=== PATIENT | female | born 1960 | race Caucasian/White ===

== ENCOUNTER 2022-05-10 09:21 | Inpatient (IN) | payer OTHER ==
[~2022-05-10] VITALS: Ht 152.4 cm; Wt 78.2 kg
[2022-05-10 09:41] LABS: BASOPHILS ABSOLUTE AUTO 0.07 K/mm3 (0.00-0.23); BASOPHILS PERCENT AUTO 1 % (0-2); EOSINOPHILS ABSOLUTE AUTO 0.41 K/mm3 (0.00-0.68); EOSINOPHILS PERCENT AUTO 3 % (0-6); Hematocrit 38.2 % (33.0-51.0); IMMATURE GRAN ABSOLUTE AUTO 0.06 K/mm3 (0.00-0.10); IMMATURE GRAN PERCENT AUTO 0 % (0-1); LYMPHOCYTES ABSOLUTE AUTO 1.78 K/mm3 (0.84-5.20); LYMPHOCYTES PERCENT AUTO 12 % (21-46); MONOCYTES ABSOLUTE AUTO 0.74 K/mm3 (0.16-1.47); MONOCYTES PERCENT AUTO 5 % (4-13); Mean Corpuscular HGB 29.4 pg (26.0-34.0); Mean Corpuscular HGB Conc 31.4 g/dL (31.5-36.5); Mean Corpuscular Volume 94 fL (80-100); Mean Platelet Volume 9.4 fL (9.1-12.4); NEUTROPHILS ABSOLUTE AUTO 11.66 K/mm3 (1.96-9.15); NEUTROPHILS PERCENT AUTO 79 % (41-73); Platelet Count 258 K/mm3 (150-400); RDW Coefficient Variation 13.3 % (11.7-14.2); RDW Standard Deviation 45.8 fL (35.1-46.3); Red Blood Cell Count 4.08 M/mm3 (3.80-5.20); White Blood Cell Count 14.72 K/mm3 (4.00-11.30)
[2022-05-10 09:54] LABS: Albumin/Globulin Ratio 0.8 (0.8-1.8); Bilirubin, Total 0.5 mg/dL (0.1-1.0); Bun/Creatinine Ratio 18.3 (12.0-20.0); Calcium, Blood 8.4 mg/dL (8.5-10.1); Creatinine, Blood 0.6 mg/dL (0.40-1.00); Globulin, Blood 3.6 g/dL (2.2-4.0); Potassium, Blood 3.7 mmol/L (3.5-5.5); Total Protein, Blood 6.6 g/dL (6.4-8.2)
[2022-05-10 12:15] LABS: Source, Urine Clean Catch
[2022-05-10 12:28] LABS: Appearance, Urine Clear (Clear); Bilirubin, Urine Neg (Neg); Blood, Urine Neg (Neg); Color, Urine Yellow (P-Yellow); Glucose Qualitative, Urine Neg (Neg); Ketones, Urine Neg (Neg); Leukocyte Esterase, Urine Neg (Neg); Nitrite, Urine Neg (Neg); Protein, Urine Neg (Neg); Urobilinogen, Urine NORM (Normal)
[2022-05-10] MEDS ORDERED: LAMO100 PO (16:04)
[2022-05-10] MEDS ORDERED: AMLO10 PO (16:05)
[2022-05-10] MEDS ORDERED: LOSA50 PO (16:05)
[2022-05-10] MEDS ORDERED: DOXEPIN HCL100 M1 PO (16:06)
[2022-05-10] MEDS ORDERED: ATOR80 PO (16:06)
[2022-05-10] MEDS ORDERED: OXYB5 PO (16:07)
--- NOTE | 2022-05-10 16:58 | NUR ---
PATIENT ADMITTED FOR LUNG ABSCESS Patient AOx4, independent in the room. Very painful with movement, reports pain in right middle back. Lungs sounds clear/diminished. PRN Oxycodone & tylenol given for pain, PRNs effective. Temp 101, tylenol given, oral temp is now 98. Patient tolerating clear liquid diet. vitals stable.
--- NOTE | 2022-05-10 18:32 | NUR ---
Patient having unbearable pain, she is crying, restless, face is flushed, she cannot get comfortable, gave another 5mg of Oxycodone, uneffective for pain. MD ordered IV Fentynal Q2H for pain.
--- NOTE | 2022-05-11 04:29 | NUR ---
ON 05/10/22 @1935, DR NORMA KINSEY NOTIFIED OF PATIENT'S SEVERE PAIN. DR GREEN ORDERED, " GIVE BACLOFEN 10 MG 3 TIMES A DAY AND DILAUDID 0.5 MG EVERY 2 HOURS FOR SERVERE PAIN." ORDERS ENTERED ORDERED.
--- NOTE | 2022-05-11 05:01 | NUR ---
A&OX4. V/S WNL. CLEAR LIQUID DIET. INDEPENDANT IN ROOM. C/O R)SIDED CHEST/LUNG PAIN SECONDARY TO ABSCESS. PRN JUNE PO GIVEN X2; BACOFLEN GIVEN X2; DILAUDID GIVEN X4; FENTANYL GIVEN X2 FOR SEVERE PAIN PER EMAR. PT DENIED SOB. IV TO L) WRIST. WILL CONTINUE TO MONITOR.
[2022-05-11 05:59] LABS: Hematocrit 39.3 % (33.0-51.0); Hemoglobin 12.9 g/dL (11.5-16.0); Mean Corpuscular HGB 29.3 pg (26.0-34.0); Mean Corpuscular HGB Conc 32.8 g/dL (31.5-36.5); Mean Platelet Volume 8.9 fL (9.1-12.4); Platelet Count 256 K/mm3 (150-400); RDW Coefficient Variation 13.2 % (11.7-14.2); RDW Standard Deviation 43.3 fL (35.1-46.3); White Blood Cell Count 29.21 K/mm3 (4.00-11.30)
[2022-05-11 06:15] LABS: Mean Corpuscular Volume 89 fL (80-100)
[2022-05-11 06:27] LABS: Bun/Creatinine Ratio 16.7 (12.0-20.0); Calcium, Blood 8.9 mg/dL (8.5-10.1); Creatinine, Blood 0.54 mg/dL (0.40-1.00); Potassium, Blood 3.2 mmol/L (3.5-5.5)
[2022-05-11 14:53] LABS: International Normalized Ratio 1.3; Prothrombin Time Results 13.4 Sec (9.7-11.5)
--- NOTE | 2022-05-11 16:46 | NUR ---
SHIFT SUMMARY PT ADMITTED FOR LUNG ABSCESS AND PARAPNEUMONIC EFFUSION. PT VERY PAINFUL AND TREATED PER EMR. PULMONARY CONSULTED AND RECOMMENDED THORACENTESIS. ULTRA SOUND SHOWED TOO LITTLE FLUID FOR THE PT TO BE A CANDIDATE FOR THORACENTESIS. PT DESATS WHEN ASLEEP AND IS NOW ON O2 TO MAINTAIN SATS ABOVE 90. COMFORTABLY RESTING IN BED WITH HER CALL LIGHT IN REACH AT THIS TIME.
--- NOTE | 2022-05-12 04:25 | NUR ---
A&X4. V/S WNL. O2 @5LPM VIA N/C. SOB ON EXERTION. IV TO L) AC. VOIDS W/O DIFFICULTY. NO BM THIS SHIFT. INDEPENDANT/SBA. CLEAR LIQUID DIET. PRN JUNE X1 & BACOFLEN X1 GIVEN PER EMAR. ONE-TIME FENTANYL PATCH APPLIED TO R) UPPER ARM. WILL CONTINUE TO MONITOR.
[2022-05-12 06:02] LABS: BASOPHILS ABSOLUTE AUTO 0.07 K/mm3 (0.00-0.23); BASOPHILS PERCENT AUTO 0 % (0-2); EOSINOPHILS ABSOLUTE AUTO 0.13 K/mm3 (0.00-0.68); EOSINOPHILS PERCENT AUTO 0 % (0-6); Hemoglobin 12.4 g/dL (11.5-16.0); IMMATURE GRAN ABSOLUTE AUTO 0.69 K/mm3 (0.00-0.10); IMMATURE GRAN PERCENT AUTO 2 % (0-1); LYMPHOCYTES ABSOLUTE AUTO 1.93 K/mm3 (0.84-5.20); LYMPHOCYTES PERCENT AUTO 6 % (21-46); MONOCYTES ABSOLUTE AUTO 1.86 K/mm3 (0.16-1.47); MONOCYTES PERCENT AUTO 6 % (4-13); Mean Corpuscular HGB 29.4 pg (26.0-34.0); Mean Corpuscular HGB Conc 32.6 g/dL (31.5-36.5); Mean Corpuscular Volume 90 fL (80-100); Mean Platelet Volume 9.2 fL (9.1-12.4); NEUTROPHILS ABSOLUTE AUTO 29.23 K/mm3 (1.96-9.15); NEUTROPHILS PERCENT AUTO 86 % (41-73); Platelet Count 307 K/mm3 (150-400); RDW Coefficient Variation 13.5 % (11.7-14.2); RDW Standard Deviation 44.4 fL (35.1-46.3); Red Blood Cell Count 4.22 M/mm3 (3.80-5.20); White Blood Cell Count 33.91 K/mm3 (4.00-11.30)
[2022-05-12 06:11] LABS: Albumin, Blood 2.5 g/dL (3.4-5.0); Anion Gap 6 mmol/L (6-16); Blood Urea Nitrogen 15 mg/dL (8-24); Bun/Creatinine Ratio 21.5 (12.0-20.0); CO2, Blood 29 mmol/L (21-32); Calcium, Blood 9.1 mg/dL (8.5-10.1); Chloride, Blood 101 mmol/L (98-108); Glomerular Filtration Rate 98 (60-); Glucose, Blood 123 mg/dL (70-99); Phosphorus, Blood 4.8 mg/dL (2.5-4.9); Potassium, Blood 3.3 mmol/L (3.5-5.5); Sodium, Blood 136 mmol/L (136-145)
--- NOTE | 2022-05-12 06:35 | NUR ---
05/12/22 @0600, PT'S OT SAT < 88%. PT CHANGED FROM NC @ 5LPM TO OXYMIXER MASK @ 8LPM. AFTER 5 MINUTES, PT'S O2 SAT AT 87%. PT CHANGED TO NON-REBREATHER MASK AND BUMPPED TO 10LPM & O2 SAT @91%. DR HANDLEY NOTIFIED OF PT'S CHANGE AND RT: C.S. TOO. PROVIDER ORDERED A PORTABLE CHEST-RAY; HOWEVER A CHEST-XRAY HAD ALREADY ORDERED TO FOLLOW-UP. PT ASSSED BY RT, C.S. AND TAKEN FOR CHEST X-RAY VIA W/C. WILL CONTINUE TO MONITOR.
--- NOTE | 2022-05-12 11:03 | NUR ---
RN NOTE ON CONT PULSE OX LOW 90S, 93% NOW ON 13L OXIMISER. S/B RT THIS AM AND NEB GIVEN. PT USING FLUTTER VALVE, STRONG MOIST COUGH, SPUTUM CUP AT BEDSIDE FOR SPECIMEN. PLAN FOR US GUIDED THORACENTESIS TODAY. REG DIET ORDERED BY DR GREEN. NO NAUSEA, PT HUNGRY. OXY 10MG HELPFUL FOR R LUNG/CHEST PAIN. BED LOW, CALL LIGHT IN REACH.
--- NOTE | 2022-05-12 12:37 | NUR ---
RN NOTE PT S/B DR ZEB CHERY. PLAN FOR TRANSFER TO PCU DUE TO THICK FLUID R LUNG, NEED FOR HIGH O2 NEEDS (13L OXIMIZER), NEED FOR CHEST TUBE PLACEMENT/ MONITORING/ MEDICATION. PT O2 SAT REMAINS LOW 90S ON CONT PULSE OX.
--- NOTE | 2022-05-12 13:20 | NUR ---
RN NOTE REPORT TO MICKEY KING RN IN PCU.PREPARING TO TRANSFER PT NOW.
--- NOTE | 2022-05-12 13:25 | NUR ---
PT ARRIVED TO PCU RM07 VIA BED FROM MEDICAL FLOOR. ALL BELONGINGS SENT WITH PT. PT A&OX4, CONTINUOUS TELEMETRY AND SPO2 MONITORING PLACED. PT ORIENTED TO ROOM, CALL LIGHT AND UNIT ROUTINES. PT VERBALIZES UNDERSTANDING OF PLAN FOR CHEST TUBE. PT REPORTS IV TO R WRIST IS PAINFUL, ABX INFUSING AT THIS TIME STOPPED. PT AGREEABLE TO POWERGLIDE PLACEMENT. PT'S SO AT BEDSIDE WELL. SEE DOCUMENTED VS. WILL UPDATE DR CARRINGTON PER HIS REQUEST ONCE CHEST TUBE IS PLACED. PT DEMONSTRATES ABLILITY TO USE CALL LIGHT, WILL CONTINUE TO MONITOR.
[2022-05-12 16:48] LABS: Automated BF RBC Count 0.004 M/mm3 (0-0); Automated BF WBC Count 6.863 K/mm3 (0-999); Body Fluid WBC Count 6863 /mm3 (0-999); RBC Count, Body Fluid 4000 /mm3 (0-0)
[2022-05-12 16:58] LABS: Protein, Body Fluid 4.1 g/dL
[2022-05-12 17:20] LABS: Appearance, Body Fluid Cloudy (Clear); Color, Body Fluid Yellow (None-Yellow); Glucose, Body Fluid <1 mg/dL; Lactate Dehydrogenase, Body Fl 1626 U/L; Total Cell Count, Body Fluid 100
[2022-05-12 17:25] LABS: pH, Body Fluid 6.7
--- NOTE | 2022-05-12 18:38 | NUR ---
CHEST TUBE TO R LATERAL CHEST SUCESSFULLY PLACED IN CT THIS AFTERNOON WITH AN ACORDIAN DRAIN, PATENT, WITH SEROUS FLUID IN COLLECTION BAG. PT MEDICATED FOR PAIN PER MD ORDERS. DR CARRINGTON TO BEDSIDE POST CHEST TUBE PLACEMENT TO EVALUATE. POWERGLIDE PLACED TO CHIDI. PT APPEARS TO HAVE TOLERATED PROCEDURES WELL. NO FURTHER NEEDS OR EVENTS THIS SHIFT. CALL LIGHT IN REACH, WILL CONTINUE TO MONITOR AND GIVE REPORT TO ONCOMING SHIFT RN.
[2022-05-13 06:21] LABS: Hematocrit 33.4 % (33.0-51.0); Mean Corpuscular HGB 29.6 pg (26.0-34.0); Mean Corpuscular HGB Conc 32.9 g/dL (31.5-36.5); Mean Corpuscular Volume 90 fL (80-100); Mean Platelet Volume 10.2 fL (9.1-12.4); Platelet Count 357 K/mm3 (150-400); RDW Coefficient Variation 13.6 % (11.7-14.2); RDW Standard Deviation 45.3 fL (35.1-46.3); Red Blood Cell Count 3.71 M/mm3 (3.80-5.20); White Blood Cell Count 23.09 K/mm3 (4.00-11.30)
[2022-05-13 06:37] LABS: Bun/Creatinine Ratio 19.6 (12.0-20.0); Calcium, Blood 7.9 mg/dL (8.5-10.1); Creatinine, Blood 1.07 mg/dL (0.40-1.00); Potassium, Blood 4.7 mmol/L (3.5-5.5)
--- NOTE | 2022-05-13 06:54 | NUR ---
NOC SHIFT SUMMARY PT SLEPT WELL OVERNIGHT. ORIENTED X4. PAIN WITH COUGH AND MOVEMENT. SR ON TELEMETRY, VSS PER PT TREND. CT TO -20 WALL SUCTION CONTINOUSLY. 600ML YELLOW SEROUS OUTPUT. PRN PAIN MEDICATIONS GIVEN W/RELIEF. ADEQUATE UOP. WILL CONTINUE TO MONITOR AND PASS ON TO DAY RN
[2022-05-13] MEDS ORDERED: PROPRANOLOL HC160 MG PO (09:07)
--- NOTE | 2022-05-13 11:35 | NUR ---
DR CARRINGTON AT [facility] TO INJECT ALETPLASE AND DORNASE INTO PT'S CHEST TUBE. PT PREMEDICATED PER EMAR. PT TOLERATED INSTILATION WELL, NO C/O PAIN OR DISCOMFORT AT THIS TIME. CALL LIGHT IN REACH, WILL CONTINUE TO MONITOR.
--- NOTE | 2022-05-13 13:06 | NUR ---
PT C/O 10/10 STABBING BURNING PAIN TO R CHEST. MEDICATED PER EMAR. WILL CONTINUE TO MONITOR. 1330: PT CONTINUES TO REPORT 10/10 PAIN TO R CHEST. PT IS RESTLESS IN BED, CONSTANTLY MOVING, CRYING OUT. LARGE AMOUNT OF SEROSANGUNOUS OUTPUT IN CHEST TUBE DRAINAGE SYSTEM SINCE DR CARRINGTON UNCLAMPED THE CHEST TUBE. DR CARRINGTON NOTIFIED FOR INCREASED PAIN CONTROL, ONE TIME ORDER FOR 50MCG FENTANYL RECEIVED.
--- NOTE | 2022-05-13 14:30 | NUR ---
PT'S BPs ARE NOTED TO BE RUNNING 70-80s SYSTOLIC AT THIS TIME. PT CONTINUES TO REPORT 10/10 R SIDED CHEST PAIN. ADMINISTRATION OF IV PAIN MEDICINE APPEARS TO BE RELATED TO HYPOTENSION. PT'S PAIN APPEARS TO ONLY BE RELEIVED BREIFLY AFTER ADMINISTRATION OF PAIN MEDICATION, THEN SHE IS AGAIN REPORTING 10/10 PAIN. 02 NEEDS HAVE INCREASED FROM 6L OXYMIZER TO 10L. OVER 1L OF FLUID HAS DRAINED FROM THE CHEST TUBE SINCE DR CARRINGTON UNCLAMPED THE CHEST TUBE AT APROX 1230. DR CARRINGTON NOTIFIED OF PT'S CONDITION, ORDERS RECEIVED TO TRANSFER PT TO ICU FOR HIGHER LEVEL OF CARE.
--- NOTE | 2022-05-13 15:00 | NUR ---
PT TRANSFERRED TO ICU 11. ALL BELONGINGS SENT WITH PT. DR CARRINGTON AT BEDSIDE ON ARRIVAL TO ROOM. REPORT GIVEN TO CANDI RUIZ.
--- NOTE | 2022-05-13 15:21 | NUR ---
ASSUMED CARE BEDSIDE REPORT RECIEVED. PT TRANSFERED TO ICU ROOM 11 AT 1450 VIA BED. PT IS AWAKE, ALERT, AND ORIENTED. PT IS RESTLESS AND ROLLING SIDE TO SIDE IN BED CONTINUALLY. PT MOANS OUT AND COMPLAINS OF SEVERE PAIN TO RIGHT RIB'S AT CHEST TUBE SITE. PIGTAIL CHEST TUBE IN PLACE TO RIGHT LATERAL CHEST WITH PINK DRAINAGE NOTED. PT ON 10L O2 VIA OXYMIZER. PT WITH SBP 80-90'S. POWERGLIDE TO CHIDI IN PLACE WITH NS INFUSING TKO. DR CARRINGTON AT BEDSIDE TO EVALUATE PT. ORDERS RECIEVED. WILL CONTINUE TO MONITOR.
--- NOTE | 2022-05-13 17:47 | NUR ---
SHIFT SUMMARY PT WITH IMPROVED PAIN CONTROL THIS EVENING. PICC TO JIMENA PLACED, LEVOPHED INFUSING AT 6 MCG/MIN, NS TKO, AND FENTANYL BELT BACK OPERATOR 25 MCG/HR WITH BELT BACK OPERATOR DOSING. PT IS DROWSEY, BUT AWAKENS TO VERBAL STIMULI. VITAL SIGNS STABLE. PT ON 10L O2 VIA OXYMIZER. CHEST TUBE REMAINS C/D/I WITH PINK/CLEAR OUTPUT NOTED. PT RESTING IN BED CALMLY AT THIS TIME. WILL CONTINUE TO MONITOR AND REPORT OFF TO ONCOMING RN.
[2022-05-14 00:04] LABS: Vancomycin, Trough 39.1 ug/mL (5.0-10.0)
[2022-05-14 03:49] LABS: BASOPHILS ABSOLUTE AUTO 0.04 K/mm3 (0.00-0.23); BASOPHILS PERCENT AUTO 0 % (0-2); EOSINOPHILS ABSOLUTE AUTO 0.52 K/mm3 (0.00-0.68); EOSINOPHILS PERCENT AUTO 3 % (0-6); Hematocrit 36.7 % (33.0-51.0); Hemoglobin 12.1 g/dL (11.5-16.0); IMMATURE GRAN ABSOLUTE AUTO 0.11 K/mm3 (0.00-0.10); IMMATURE GRAN PERCENT AUTO 1 % (0-1); LYMPHOCYTES PERCENT AUTO 9 % (21-46); MONOCYTES ABSOLUTE AUTO 1.64 K/mm3 (0.16-1.47); MONOCYTES PERCENT AUTO 8 % (4-13); Mean Corpuscular HGB 29.3 pg (26.0-34.0); Mean Corpuscular Volume 89 fL (80-100); Mean Platelet Volume 8.8 fL (9.1-12.4); NEUTROPHILS ABSOLUTE AUTO 16.06 K/mm3 (1.96-9.15); NEUTROPHILS PERCENT AUTO 80 % (41-73); Platelet Count 369 K/mm3 (150-400); RDW Coefficient Variation 13.6 % (11.7-14.2); RDW Standard Deviation 44.7 fL (35.1-46.3); Red Blood Cell Count 4.13 M/mm3 (3.80-5.20); White Blood Cell Count 20.07 K/mm3 (4.00-11.30)
[2022-05-14 04:09] LABS: Bun/Creatinine Ratio 15.7 (12.0-20.0); Calcium, Blood 8.8 mg/dL (8.5-10.1); Creatinine, Blood 2.35 mg/dL (0.40-1.00); Potassium, Blood 3.6 mmol/L (3.5-5.5)
--- NOTE | 2022-05-14 06:16 | NUR ---
SHIFT SUMMARY: PT IS DROWSY BUT ORIENTED X4 WITH LEVOPHED AND FENTANLY HISTOLOGIC AIDE INFUSING. BASAL RATE OF HISTOLOGIC AIDE DECREASED TO 12.5/MCG/HR. LEVOPHED WAS TITRATED DOWN INITIALLY BUT PT DID NOT TOLLERATE WELL AND RATE WAS RETURNED TO 6 MCG/MIN.PT IS ABLE TO MOVE IN BED WITH SOME ASSITANCE, AND USE THE BEDPAN AND HAS GOOD URINE OUT PUT. THE CHEST TUBE HAD 150 ML OF SEROSANGUINOUS FLUID DRAINED WITHOUT SQ CREPITUS OR AIR LEAK AND PT STATES THAT OVER ALL THE PAIN IS DECREASED. PT'S SPO2 STABLE ON THE MODERATE FLOW NC AT 10 LPM.
--- NOTE | 2022-05-14 10:31 | NUR ---
CATHFLO CATHFLO ADMINISTERED VIA RIGHT POSTERIOR CHEST TUBE BY DR CARRINGTON AT THIS TIME. CHEST TUBE TO REMAIN CLAMPED FOR 30 MINS, THEN TURNED BACK TO SUCTION PER DR CARRINGTON.
--- NOTE | 2022-05-14 12:39 | NUR ---
PAIN PT CONTINUES TO YELL OUT AND IS RESTLESS IN BED. PT COMPLAINS OF 10/10 PAIN DESPITE FENTANYL ADVERTISING DISPATCH CLERK AND MULTIPLE PRN PAIN MEDS PER EMAR. DR CARRINGTON AWARE. NO NEW ORDERS RECIEVED. WILL CONTINUE TO MONITOR.
[2022-05-14 16:43] LABS: Bun/Creatinine Ratio 14.3 (12.0-20.0); Calcium, Blood 8.3 mg/dL (8.5-10.1); Creatinine, Blood 2.45 mg/dL (0.40-1.00); Potassium, Blood 3.7 mmol/L (3.5-5.5)
--- NOTE | 2022-05-14 17:09 | NUR ---
SHIFT SUMMARY PT WITH IMPROVED PAIN CONTROL THIS AFTERNOON. PT REMAINS ON NON REBREATHER AFTER EPISODE OF UNCONCONTROLLED PAIN EARLIER THIS SHIFT. NON REBREATHER AT 15L AT THIS TIME. RESPIRATIONS UNLABORED, SPO2 >92%. PT RECIEVED MULTIPLE DOSES OF IV FENTANYL, DILAUDID, AND ATIVAN THIS SHIFT IN ADDITION TO FENTANYL CHIEF II DISPATCHER. PT RESTING QUIETLY AT THIS TIME. CHEST TUBE REMAINS IN PLACE TO RIGHT POSTERIOR CHEST WITH INCREASED AMOUNT OF PINK DRAINAGE S/P TPA ADMINISTRATION BY DR CARRINGTON. CHEST TUBE INSERTION SITE REMAINS C/D/I. PICC TO JIMENA REMAINS IN PLACE WITH NS INFUSING TKO AND LEVOPHED AT 2 MCG/MIN. PT VOIDED WITH BEDPAN ONCE THIS SHIFT. PT ABLE TO MOVE SELF IN BED INDEPENDENTLY. VITAL SIGNS STABLE. WILL CONTINUE TO MONITOR AND REPORT OFF TO ONCOMING RN.
--- NOTE | 2022-05-14 20:19 | NUR ---
ASSUMED CARE. Mild sedation r/t medication adminstration for pain and anxiety. Responds to verbal stimuli and follows directions, just falls right back to sleep. Pupils sluggish, gross motor movements. Dr. Schumacher flushed chest tube due to clots, instructed to monitor and flush PRN if indicated. New orders were received. RT in room placed on 10l HI-flow, sats high 90's. LS Dim to right mid to lower lobes. Pig tail tube to right lateral chest wall, draining well serous sanguous in color. Cough is moist, non-productive, resp e/u. HR sinus in the 80's. BP soft, Levophed 2mcq to keep MAP >65. Abdomin soft BT x4, Lomeli 14F placed per orders, clear yellow urine noted. LR bolus started 1 of 2. LICENSED FUNERAL DIRECTOR AND EMBALMER fentanyl and tko infusing. States pain was given her production team advisor button but fell back to sleep. Will continue to montior, call light is in reach. Repositioned.
--- NOTE | 2022-05-14 22:00 | NUR ---
NO DRAINAGE NOTED IN CHEST TUBE ITSELF, CLOT NOTED IN PORT. FLUSHED PORT WITH 30CC OF SALINE PER DR. CARRINGTON. INCREASE IN DRAINAGE NOTED.
--- NOTE | 2022-05-15 | NUR ---
FLUSHED CHEST TUBE WITH 30CC OF NS, PULLED OUT SMALL CLOT FROM PORT.
[2022-05-15 03:30] LABS: BASOPHILS ABSOLUTE AUTO 0.04 K/mm3 (0.00-0.23); BASOPHILS PERCENT AUTO 0 % (0-2); EOSINOPHILS ABSOLUTE AUTO 0.24 K/mm3 (0.00-0.68); EOSINOPHILS PERCENT AUTO 2 % (0-6); Hematocrit 32.7 % (33.0-51.0); Hemoglobin 10.4 g/dL (11.5-16.0); IMMATURE GRAN ABSOLUTE AUTO 0.08 K/mm3 (0.00-0.10); IMMATURE GRAN PERCENT AUTO 1 % (0-1); LYMPHOCYTES ABSOLUTE AUTO 1.39 K/mm3 (0.84-5.20); LYMPHOCYTES PERCENT AUTO 9 % (21-46); MONOCYTES ABSOLUTE AUTO 1.35 K/mm3 (0.16-1.47); MONOCYTES PERCENT AUTO 9 % (4-13); Mean Corpuscular HGB 28.9 pg (26.0-34.0); Mean Corpuscular HGB Conc 31.8 g/dL (31.5-36.5); Mean Corpuscular Volume 91 fL (80-100); Mean Platelet Volume 8.9 fL (9.1-12.4); NEUTROPHILS ABSOLUTE AUTO 11.65 K/mm3 (1.96-9.15); NEUTROPHILS PERCENT AUTO 79 % (41-73); Platelet Count 275 K/mm3 (150-400); RDW Coefficient Variation 13.8 % (11.7-14.2); RDW Standard Deviation 46.2 fL (35.1-46.3); White Blood Cell Count 14.75 K/mm3 (4.00-11.30)
[2022-05-15 03:48] LABS: Albumin, Blood 1.5 g/dL (3.4-5.0); Anion Gap 9 mmol/L (6-16); Blood Urea Nitrogen 36 mg/dL (8-24); Bun/Creatinine Ratio 15.3 (12.0-20.0); CO2, Blood 25 mmol/L (21-32); Calcium, Blood 8.4 mg/dL (8.5-10.1); Chloride, Blood 104 mmol/L (98-108); Creatinine, Blood 2.36 mg/dL (0.40-1.00); Glomerular Filtration Rate 23 (60-); Glucose, Blood 112 mg/dL (70-99); Phosphorus, Blood 5.7 mg/dL (2.5-4.9); Potassium, Blood 3.6 mmol/L (3.5-5.5); Sodium, Blood 138 mmol/L (136-145); Vancomycin, Random 21.5 ug/mL
--- NOTE | 2022-05-15 05:33 | NUR ---
SHIFT SUMMARY: Pt has remained asleep t/o the night, awakes to verbal stimuli. Answer questions but is not always coherent or answers make sense. Disoriented, and falls right back to sleep. Afebrile. LS dim on the right side. Right chest tube was flushed with 30cc of NS x2 with clot removed once. 210cc total output received, serousanguous color. Decreased from 10L to 6L Hi-flow with sats mid 90's. Sinus in the 80's soft BP. Levophed titrated to keep MAP >65. Lomeli 14F placed, with 1300 output this shift. According to labs kidney functions remained unchanged from yesterday, except phosphorus is elevated to 5.7. Dr. Crouch called for some phoslo. Dressing for chest tube still intact, site has remained unchanged. She has not used her MANAGER TRADING except for the its continuous function all night. No other changes to note. Call light is inr each.
--- NOTE | 2022-05-15 06:02 | NUR ---
Spoke to Dr. Crouch regarding labs, no orders. Patient is very confused this am, crying that she has no children, does not know where she is at and can not remember what has happened. Able to answer all questions, able to move all extermities, pupils are reactive. Will continue to monitor.
--- NOTE | 2022-05-15 06:40 | NUR ---
Pt in room, tearful at times. "Im ". Oriented to place and what has happened. "Im going to have pneumonia baby". Completly confused and disoriented. Then she coughed up thick clear sputum with streaks of blood in it. LS coarse. Rt now in the room, she refused to have breathing treatment, but he is working with her on flutter valve.
--- NOTE | 2022-05-15 07:45 | NUR ---
ASSUMED CARE: REPORT RECEIVED FROM TIMOTEO Ludwig RN. ASSUMED CARE OF THIS PT AT APPROX 0700. ON ASSESSMENT, THE PT IS AWAKE & CONFUSED. SHE IS MAKING NONSENSICAL STATEMENTS & DOES NOT KNOW WHERE SHE IS. SHE DOES RECOGNIZE HER & IS ABLE TO FOLLOW DIRECTIONS. LS ARE DIM IN BASES, PT ON 6L HI-FLOW NC W/ O2 SATS > 92%. CHEST TUBE IN PLACE TO RIGHT LATERAL/POSTERIOR CHEST WALL, DRAINING SS OUTPUT. NO CREPITUS NOTED TO PALPATION, PT STS HAVING RIGHT FLANK PAIN THAT IS CONTINUOUS. FENTANYL INVESTOR IN USE. NPO PER NURSING AT THIS TIME R/T AMS, THE PT IS INSISTENT THAT SHE IS AWAKE & "NEEDS A STRAWBERRY MILKSHAKE" BEFORE QUICKLY CLOSING EYES & APPEARING TO BE SLEEPING. IS AT BEDSIDE & IS MADE AWARE OF POTENTIAL ASPIRATION RISK & REASON FOR HOLDING PO INTAKE THIS AM. CARRENO PLACED LAST NIGHT FOR STRICT I&O IS DRAINING CLEAR YELLOW URINE, UA SENT BY THIS RN. SKIN CONDITION OVERALL INTACT, Q2H REPOSITIONING TO MAINTAIN SKIN INTEGRITY. WILL CONTINUE TO MONITOR & UPDATE NEEDED.
[2022-05-15 08:21] LABS: Source, Urine Foley catheter
[2022-05-15 08:26] LABS: Appearance, Urine Clear (Clear); Bilirubin, Urine Neg (Neg); Blood, Urine 2+ (Neg); Glucose Qualitative, Urine Neg (Neg); Ketones, Urine Neg (Neg); Leukocyte Esterase, Urine 1+ (Neg); Nitrite, Urine Neg (Neg); Protein, Urine 2+ (Neg); Specific Gravity, Urine 1.015 (1.003-1.022); Urobilinogen, Urine NORM (Normal)
[2022-05-15 08:32] LABS: Color, Urine Yellow (P-Yellow)
[2022-05-15 08:33] LABS: Bacteria Not Seen /hpf; Squamous Epithelial Cells Few /hpf (Few); White Blood Cells, Urine Not Seen /hpf (0-5)
--- NOTE | 2022-05-15 11:10 | NUR ---
UDPATE: PT TRANSFERRED FROM ICU11 TO ICU08 R/T UNIT CENSUS. THE PT's S.O. IS AT BEDSIDE DURING THIS TIME. VSS, LEVOPHED INFUSING. CALL LIGHT & FENTANYL AUDIO VISUAL DIRECTOR BUTTON WITHIN REACH.
[2022-05-15 15:46] LABS: Vancomycin, Random 16.6 ug/mL
--- NOTE | 2022-05-15 18:13 | NUR ---
SHIFT SUMMARY: NO ACUTE CHANGES SINCE PRIOR UPDATES. PT REMAINS A&O TO SELF, FOLLOWING DIRECTIONS. SHE IS DISORIENTED TO PLACE & STAFF MEMBERS DESPITE REDIRECTION. LS ARE DIM IN BASES, PT ON 4L NC W/ O2 SATS > 92%. CHEST TUBE TO RIGHT LATERAL CHEST WALL IS OCCLUDED. DR STARR HAS ATTEMPTED TO FLUSH THIS AFTERNOON & IS UNABLE TO DO SO. HE PLANS TO VISUALIZE THE PT's CHEST XRAY IN THE AM TO DETERMINE IF THE CHEST TUBE MAY BE REMOVED OR WILL NEED TO BE REPLACED. SITE REMAINS WNL, NO CREPITUS & CHEST TUBE WELL SECURED. MONITOR SHOWS SR W/ HR 80-90s, LEVOPHED INFUSING AT 2 MCG/MIN FOR HYPOTENSION. PT TOLERATING PO INTAKE WELL W/ NO GI COMPLAINTS, NO BM. CARRENO PATENT/ DRAINING LIGHT YELLOW URINE W/ LARGE AMNTS OUTPUT. SKIN CONDITION OVERALL INTACT, Q2H REPOSITIONING TO MAINTAIN SKIN INTEGRITY. WILL CONTINUE TO MONITOR & REPORT OFF TO ONCOMING RN.
[2022-05-16 04:50] LABS: Hematocrit 31.5 % (33.0-51.0); Hemoglobin 10.3 g/dL (11.5-16.0); Mean Corpuscular HGB 29.3 pg (26.0-34.0); Mean Corpuscular HGB Conc 32.7 g/dL (31.5-36.5); Mean Corpuscular Volume 90 fL (80-100); Mean Platelet Volume 8.6 fL (9.1-12.4); Platelet Count 284 K/mm3 (150-400); RDW Coefficient Variation 14.2 % (11.7-14.2); RDW Standard Deviation 46.2 fL (35.1-46.3); Red Blood Cell Count 3.52 M/mm3 (3.80-5.20); White Blood Cell Count 12.44 K/mm3 (4.00-11.30)
[2022-05-16 05:09] LABS: Calcium, Blood 8.3 mg/dL (8.5-10.1); Creatinine, Blood 1.92 mg/dL (0.40-1.00); Potassium, Blood 3.5 mmol/L (3.5-5.5)
--- NOTE | 2022-05-16 07:50 | NUR ---
ASSUMED CARE: REPORT RECEIVED FROM ALEC Ludwig RN. ASSUMED CARE OF THIS PT AT APPROX 0700. ON ASSESSMENT, THE PT IS RESTING QUIETLY. SHE AWAKENS SPONTANEOUSLY & BEGINS TO MAKE NONSENSICAL STATEMENTS. BELIEVES THAT STAFF ARE "TRYING TO KILL" HER WHILE PERFORMING ROUTINE AM CARE. PRECEDEX INFUSING AT 0.6 MCG/KG/HR. LS ARE DIM IN BASES, PT ON 4L NC W/ O2 SATS > 92%. CHEST TUBE TO RIGHT LATERAL CHEST WALL IS OCCLUDED, PROVIDER AWARE. SITE WNL, NO CREPITUS NOTED & TUBE WELL-SECURED. CXR PENDING THIS AM. MONITOR SHOWS SR W/ HR 60-80s, LEVOPHED INFUSING AT 2 MCG/MIN FOR HYPOTENSION. PT HAS NO GI COMPLAINTS, BREAKFAST HELD R/T SOMNOLENCE/ SEDATION. NO BM SINCE ADMIT. CARRENO PATENT/ DRAINING YELLOW URINE. SKIN CONDITION OVERALL INTACT, Q2H REPOSITIONING TO MAINTAIN SKIN INTEGRITY. WILL CONTINUE TO MONITOR & UPDATE NEEDED.
--- NOTE | 2022-05-16 10:15 | NUR ---
DR CARRINGTON: PROVIDER AT BEDSIDE TO EVAL PT THIS AM. HE WOULD LIKE TO ATTEMPT FLUSHING CHEST TUBE TO DISLODGE ANY OCCLUSION THAT MAY BE PRESENT. 30 ML NS HAS BEEN FLUSHED INTO CHEST TUBE & RETURNED ONCE RECONNECTED TO SUCTION. THE CHEST TUBE IS NOW DRAINING APPROPRIATELY.
--- NOTE | 2022-05-16 12:58 | NUR ---
CT W/O CONTRAST: PT OUT OF ROOM TO IMAGING AT APPROX 1230 W/ REMINGTON Ludwig RN. RETURNED TO ROOM AT 1250. VSS. PROVIDER AWARE, AWAITING CT RESULTS.
--- NOTE | 2022-05-16 14:39 | NUR ---
UPDATE: THE PT IS SITTING UP REQUESTING A SNACK, SNACK PROVIDED. SHORTLY AFTER, SHE HAS BECOME INCREASINGLY AGITATED & IS YELLING AT STAFF, STATING THAT SHE NEEDS TO LEAVE IMMEDIATELY & ATTEMPTING TO PULL OUT PICC LINE IN JIMENA. SHE STS "I NEED ALL OF THIS REMOVED & TO LEAVE AMA." DR CARRINGTON NEARBY & HAS COME TO BEDSIDE AT THIS TIME. HE HAS SPOKEN AT LENGTH W/ THE PT ABOUT THE CONSEQUENCES OF LEAVING THE HOSPITAL PRIOR TO COMPLETION OF TX FOR HER PNA/ EMPYEMA. 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 DR CARRINGTON HAS EXPLAINED THAT SHE WOULD LIKELY NEED TO RETURN TO THE HOSPITAL INSTEAD OF BEING TREATED AN OUTPATIENT R/T HER CONDITION. FENTANYL, PRECEDEX & LEVOPHED PLACED ON STANDBY AT THIS TIME, PER DR CARRINGTON. HER S.O. HAS ALSO COME TO VISIT AT THIS TIME & IS AT BEDSIDE ATTEMPTING TO REASSURE THAT SHE IS RECEIVING THE NECESSARY CARE & THAT NO ONE HERE IS TRYING TO HARM HER. SHE HAS RESPONDED WELL TO THIS & IS AGREEABLE TO STAY IN THE HOSPITAL. FENTANYL & PRECEDEX RESUMED, LEVOPHED REMAINS ON STANDBY - WILL RESUME IF NEEDED.
[2022-05-16 16:14] LABS: Vancomycin, Random 17.6 ug/mL
--- NOTE | 2022-05-16 16:38 | NUR ---
Pt. is awake in bed SO is present. Pt. welcomes my visit. After initial introduction, Pt. declines any spiritual care, noonetheless rapport is established. Pt. displays evidence of discofort. Pt. is from out of town ([place] Will remain available for family and staff as needed.
--- NOTE | 2022-05-16 16:52 | NUR ---
SHIFT SUMMARY: NO ACUTE CHANGES SINCE PRIOR UPDATES. PT REMAINS ORIENTED TO SELF, FAMILY, PLACE & FOLLOWING DIRECTIONS. SHE IS INTERMITTENTLY CONFUSED/ FORGETFUL, REQUIRING REORIENTATION AT TIMES. THIS EVENING, SHE HAS SPOKEN W/ THE PROVIDER REGARDING FLUSING THE CHEST TUBE W/ ALTEPLASE & THEN SHORTLY AFTER STS THAT SHE DOES NOT REMEMBER HAVING THIS CONVERSATION & REFUSES TO HAVE FLUSHING COMPLETED. DR CARRINGTON HAS SPOKEN W/ THE PT AGAIN & SHE WOULD LIKE HER DAUGHTER TO BE PRESENT FOR CHEST TUBE FLUSHING INSTEAD. DAUGHTER, CHRISSIE, IS DRIVING UP FROM [employer] CURRENTLY. THE PATIENT STATES THAT AT THAT TIME SHE MAY ACCEPT THE CHEST TUBE FLUSH. LS ARE DIM IN BASES, PT ON 2L NC W/ O2 SATS > 92%. CHEST TUBE TO RIGHT LATERAL CHEST WALL, DRAINING SMALL AMNTS SS OUTPUT. MONITOR SHOWS SR W/ HR 60-80s, BP STABLE W/ LEVOPHED ON STANDBY. NO GI COMPLAINTS, TOLERATES PO INTAKE WELL. CARRENO PATENT/ DRAINING YELLOW URINE. SKIN CONDITION OVERALL INTACT, Q2H REPOSITIONING TO MAINTAIN SKIN INTEGRITY. WILL CONTINUE TO MONITOR & REPORT OFF TO ONCOMING RN.
--- NOTE | 2022-05-16 19:00 | NUR ---
ASSUMED CARE ASSUMED CARE OF PATIENT. FAMILY AT BEDSIDE. PT IS AWAKE AND ALERT. SLIGHTLY DROWSY. OCCASIONAL NONSENSICAL CONVERSATION AND SLOW VERBAL RESPONSE. ORIENTED TO SELF AND FAMILY. OCCASIONALLY ORIENTED TO PLACE. FOLLOWS SIMPLE COMMANDS. PRECEDEX CONTINUES AT 0.7MCG/KG/HR. MONITOR SHOWS NSR, RATE 70s. BP STABLE. LEVOPHED REMAINS OFF. O2 2L NC- SATS STABLE. RESPIRATIONS ARE SHALLOW, BUT EVEN AND UNLABORED. OCCASIONAL COUGH NOTED. RIGHT LATERAL CHEST TUBE IN PLACE- 20CM SUCTION WITH SMALL AMOUNT OF SEROSANGUINOUS DRAINAGE. CARRENO PATENT AND DRAINING TO GRAVITY. FENTANYL FORM CARPENTER INFUSING PER ORDER- PLAN IS TO CHANGE TO DILAUDID FORM CARPENTER AT THIS TIME. SEE SHIFT ASSESSMENT FOR FULL ASSESSMENT.
--- NOTE | 2022-05-16 21:00 | NUR ---
CHEST TUBE PULMOZYME AND ALTEPLASE FLUSHED INTO CHEST TUBE FOLLOWED BY 50cc NS PER ORDER. CHEST TUBE CLAMPED AFTER. PT PREMEDICATED WITH DILAUDID 1MG IVP. TOLERATED PROCEDURE WELL.
--- NOTE | 2022-05-16 22:00 | NUR ---
CHEST TUBE CHEST TUBE UNCLAMPED AT THIS TIME PER ORDER.
--- NOTE | 2022-05-17 00:19 | NUR ---
RESTRAINTS PT PULLING O2 OFF AND PULLING AT IVs/OTHER TUBES/LINES. DOES NOT STOP DESPITE INSTRUCTIONS TO NOT PULL ON THINGS. BILATERAL SOFT WRIST RESTRAINTS PLACED AT THIS TIME.
[2022-05-17 04:41] LABS: BASOPHILS ABSOLUTE AUTO 0.03 K/mm3 (0.00-0.23); BASOPHILS PERCENT AUTO 0 % (0-2); EOSINOPHILS ABSOLUTE AUTO 0.43 K/mm3 (0.00-0.68); EOSINOPHILS PERCENT AUTO 5 % (0-6); Hematocrit 27.9 % (33.0-51.0); IMMATURE GRAN ABSOLUTE AUTO 0.08 K/mm3 (0.00-0.10); IMMATURE GRAN PERCENT AUTO 1 % (0-1); LYMPHOCYTES ABSOLUTE AUTO 1.21 K/mm3 (0.84-5.20); LYMPHOCYTES PERCENT AUTO 13 % (21-46); MONOCYTES ABSOLUTE AUTO 1.06 K/mm3 (0.16-1.47); MONOCYTES PERCENT AUTO 11 % (4-13); Mean Corpuscular HGB 28.8 pg (26.0-34.0); Mean Corpuscular HGB Conc 32.3 g/dL (31.5-36.5); Mean Corpuscular Volume 89 fL (80-100); Mean Platelet Volume 8.5 fL (9.1-12.4); NEUTROPHILS ABSOLUTE AUTO 6.84 K/mm3 (1.96-9.15); NEUTROPHILS PERCENT AUTO 71 % (41-73); Platelet Count 251 K/mm3 (150-400); RDW Coefficient Variation 14.4 % (11.7-14.2); RDW Standard Deviation 46.5 fL (35.1-46.3); Red Blood Cell Count 3.13 M/mm3 (3.80-5.20); White Blood Cell Count 9.65 K/mm3 (4.00-11.30)
[2022-05-17 04:57] LABS: Bun/Creatinine Ratio 12.3 (12.0-20.0); Calcium, Blood 8.3 mg/dL (8.5-10.1); Creatinine, Blood 1.63 mg/dL (0.40-1.00); Potassium, Blood 3.5 mmol/L (3.5-5.5)
--- NOTE | 2022-05-17 06:32 | NUR ---
SHIFT SUMMARY NO ACUTE CHANGES DURING NOC. SLEEPING WHEN UNDISTURBED. ROUSES TO VERBAL STIMULI WELL SPONTANEOUSLY AT TIMES. CONTINUES TO BE CONFUSED/DISORIENTED. NONSENSICAL CONVERSATION AT TIMES. FOLLOWS DIRECTIONS AT TIMES. OTHER TIMES, PT IS NOT DIRECTABLE. PER PATIENT, PAIN IS BETTER CONTROLLED AFTER CHANGING CRIMINAL JUSTICE TEACHER TO DILAUDID. BILATERAL SOFT WRIST RESTRAINTS INITIATED AT 0019 D/T PT PULLING ON TUBES/LINES. ATTEMPTED TO WEAN PRECEDEX DOWN THIS AM, BUT PT BECAME MORE AGITATED. PRECEDEX NOW INFUSING AT 0.7MCG/KG/HR. MONITOR SHOWS NSR, RATE 70s-80s. BP STABLE. O2 2L NC- SATS STABLE. RESPIRATIONS ARE SHALLOW, BUT EVEN AND UNLABORED. OCCASIONAL COUGH NOTED. RIGHT LATERAL CHEST TUBE WITH 130CC SEROSANGUINOUS DRAINAGE. DRSG CHANGED X 1 DURING NOC D/T BLOODY DRAINAGE. ALTEPLASE AND PULMOZYME FLUSHED INTO CHEST TUBE AT APPROXIMATELY 2100. CARRENO PATENT AND DRAINING TO GRAVITY. WILL REPORT TO ONCOMING RN WHEN AVAILABLE.
--- NOTE | 2022-05-17 08:39 | NUR ---
CARE OF PT ASSUMED AT 0700. PT'S AT BEDSIDE. PT DROWSY, PRECEDEX AT 0.7MCG. DILAUDID SEMI DRIVER AT 0.5MG/HR CONT W PUSHES. PT C/O PAIN THIS AM TO CHEST TUBE AREA, AFTER SEMI DRIVER DOSE GIVEN PT HAD IMPROVED PAIN. RIGHT LAT PIGTAIL CHEST TUBE TO [id number] WALL SX, DARK SEROSANGUINOUS FLUID OUTPUT. THERE IS NO CREPITUS, NO AIR LEAK, DRSG IS INTACT. LUNG SOUNDS VERY DIMINISHED TO RIGHT SIDE. SATS >90% ON 2L. PT TOO DROWSY TO EAT OR TAKE AM MEDS. PRECEDEX DECREASED TO 0.3MCG.
--- NOTE | 2022-05-17 10:23 | NUR ---
DR CARRINGTON IN TO SEE PT. PRECEDEX DECREASED TO 0.1MCG D/T SEDATION. CHEST DRAIN CHANGED W DR CARRINGTON. LOVENOX TO BE HELD D/T INCREASED RED S/S DRAINAGE. CHEST XRAY AND LABS TO BE DONE AT 1400 TODAY.
--- NOTE | 2022-05-17 12:53 | NUR ---
PT AWAKE ENOUGH TO EAT, REQUIRES ASSISTANCE. PT CONFUSED. ABLE TO EAT ONE PUDDING AND A COUPLE SIPS OF MILK. PAIN WELL CONTROLLED W DILAUDID MANAGER REGIONAL SALES. PRECEDEX REMAINS AT 0.1MCG. NO CHANGES TO CHEST TUBE.
[2022-05-17 14:05] LABS: Hematocrit 28.3 % (33.0-51.0); Hemoglobin 9.1 g/dL (11.5-16.0)
--- NOTE | 2022-05-17 14:26 | NUR ---
ASSUMED CARE ASSUMED CARE OF PT. REPORT RECIEVED. PT IS RESTING IN BED AWAKE AND ALERT. SPOUSE AT BEDSIDE. CHEST TUBE TO RIGHT SIDE C/D/I, DARK RED OUTPUT NOTED IN COLLECTION CHAMBER AND TUBING. PICC TO JIMENA IN PLACE. DILAUDID DIRECTOR HEMATOLOGY INFUSING. PT DENIES PAIN AT THIS TIME. WILL CONTINUE TO MONITOR.
--- NOTE | 2022-05-17 16:18 | NUR ---
PT BECAME INCREASINGLY CONFUSED, VERY PARANOID. THOUGHTS BECAME DISORGANIZED, PT BECAME AGITATED, FEARFUL, DISTRUSTFUL, AND AGRESSIVE. PT'S STARTED RIPPING GOWN, LEADS, AND LINES OFF. AFTER ATTEMPTING TO REORIENT PT, PT STATED SHE WAS IN "W.ICU... 7." PT WOULD LAUGH AND THEN SCREAM. PT KICKED AT STAFF AND ATTEMPTED TO BITE STAFF IN STATE OF PANIC AND CONFUSION. PT WOULD PARROT CONVERSATION, REPEATING WORDS OVER AND OVER AGAIN. PRECEDEX INCREASED TO 0.5MCG THEN TO 0.7MCG. ATIVAN 1MG GIVEN. DR CARRINGTON AWARE. WILL TITRATE DOWN PRECEDEX DANIEL.
--- NOTE | 2022-05-17 20:00 | NUR ---
ASSUMED CARE. OPENS EYES TO SOUND, ORIENTED TO SELF ONLY, JAYLIN OFF AND ON, DIFFICULT RE-ORIENTING DUE TO DROWSINESS. dOES NOT ALWAYS FOLLOWS COMMANDS. PULLS ON RESTRAINTS AND TRIES TO CRAWL OUT OF BED AND WILL TIRED SELF OUT AT TIMES. LS DIM ON THE RIGHT, RIGHT LATERAL CHEST TUBE IN PLACE WIHT SEROUS SANGUOUS DRAINAGE, DRESSING HAS DRAINAGE UNDERNEATH, TUBE IS IN PLACE. sATS >90 ON 2L. OCCATIONAL COUGH. TIRED TO GIVE HER SOME WATER, SHE STARTED TO COUGH AND SAID SHE WAS CHOKING, WILL HOLD NIGHT MEDS. CATH PATENT AND DRAINING. VITALS STABLE AT THE MOMENT, CHEST TUBE TO SUCTION. PRECEDEX GTT AT 0.7MCQ. TKO NS. WILL MONITOR.
[2022-05-18 04:45] LABS: BASOPHILS ABSOLUTE AUTO 0.03 K/mm3 (0.00-0.23); BASOPHILS PERCENT AUTO 0 % (0-2); EOSINOPHILS ABSOLUTE AUTO 0.45 K/mm3 (0.00-0.68); EOSINOPHILS PERCENT AUTO 5 % (0-6); Hematocrit 24.8 % (33.0-51.0); Hemoglobin 7.7 g/dL (11.5-16.0); IMMATURE GRAN ABSOLUTE AUTO 0.08 K/mm3 (0.00-0.10); IMMATURE GRAN PERCENT AUTO 1 % (0-1); LYMPHOCYTES ABSOLUTE AUTO 1.44 K/mm3 (0.84-5.20); LYMPHOCYTES PERCENT AUTO 17 % (21-46); MONOCYTES ABSOLUTE AUTO 0.79 K/mm3 (0.16-1.47); MONOCYTES PERCENT AUTO 9 % (4-13); Mean Corpuscular HGB 28.5 pg (26.0-34.0); Mean Corpuscular Volume 92 fL (80-100); Mean Platelet Volume 8.6 fL (9.1-12.4); NEUTROPHILS ABSOLUTE AUTO 5.81 K/mm3 (1.96-9.15); NEUTROPHILS PERCENT AUTO 68 % (41-73); Platelet Count 202 K/mm3 (150-400); RDW Coefficient Variation 14.2 % (11.7-14.2); RDW Standard Deviation 47.9 fL (35.1-46.3)
[2022-05-18 05:10] LABS: Bun/Creatinine Ratio 10.7 (12.0-20.0); Calcium, Blood 8.6 mg/dL (8.5-10.1); Creatinine, Blood 1.49 mg/dL (0.40-1.00); Potassium, Blood 3.4 mmol/L (3.5-5.5)
--- NOTE | 2022-05-18 05:45 | NUR ---
SHIFT SUMMARY NO ACUTE CHANGES DURING NOC. SLEEPING BUT HAS BEEN AROUSABLE. CONTINUES TO BE CONFUSED, DISORIENTED, EMOTIONAL CRYING AT TIMES. NONSENICAL SPEECH THAT COMES AND GOES. FOLLOWS DIRECTIONS AT TIMES BUT DID HAVE AN EPISODE WHERE SHE WAS PULLING AGAINST RESTRAINTS, TRYING TO CRAWL OVER THE SIDE RAILS, ATTEMPTING TO BITE AND HIT. SOFT WRIST RESTRAINTS BILATERALLY. DILUDID MIS MANAGER FOR PAIN CONTROL. PRECEDEX DOWN TO 0.5MCQ/KG/HR. ON 2L NC FOR >95 SATS, OCCATIONAL COUGH, MOIST, NON-PRODUCTIVE. RIGHT CHEST TUBE 375CC OUTPUT BLOODY, FLUSHED LINE WITH 20CC NS X3, CHANGED DRESSING DUE TO LEAKAGE AT SITE. MONITOR SHOWS NSR WITH RATE IN 70'S. SHE HAD A FEW SOFT BP BUT HAVE STABILIZED. AFEBRILE. CARRENO CATH WITH 500CC OUTPUT CLEAR YELLOW. WITHHELD PO MEDS DUE TO PATIENT CHOKING ON A SIP OF WATER AT START OF SHIFT, AND HAS NOT BEEN AWAKE ENOUGH TO SWALLOW. WILL REPORT OFF.
--- NOTE | 2022-05-18 07:45 | NUR ---
CARE ASSUMED OF PT AT 0700. PT SLEEPING, AWAKENS SPONT, AWAKENS TO CARE. THOUGHTS DISORGANIZED WITH NONSENSICAL SPEECH. MOVES ALL EXT, IS NOT FOLLOWING DIRECTIONS AT THIS TIME. FALLS BACK TO SLEEP QUICKLY. PRECEDEX AT 0.5MCG, DILAUDID FREELANCE GRAPHIC DESIGNER AT 0.5MG/HR CONT. PT IN SOFT WRIST RESTRAINTS. RIGHT LAT CHEST TUBE WITH SANGUINOUS DRAINAGE. PIGTAIL FLUSHED W 20CC SALINE PER DR CARRINGTON, NO CLOTS NOTED, SALINE FLOWED BACK TOWARDS CHEST TUBE. CHEST TUBE AT [id number], NO LEAK, NO CREPITUS. WILL ATTEMPT TO LIGHTEN SEDATION AGAIN TODAY, IF IT'S NOT POSSIBLE D/T SAFETY REASONS PT MAY REQUIRE SUPPLEMENTAL NUTRITION. H&H HAS DROPPED TO 7.7, WILL REVIEW LABS W DR CARRINGTON. BP STABLE. HR SINUS. PT ALSO REQUIRES BOWEL CARE.
--- NOTE | 2022-05-18 09:11 | NUR ---
PT WOKE UP SCREAMING AND THREW HERSELF TO LEFT SIDE OFF BED PULLING ON CHEST TUBE. CHEST TUBE DRSG LOOSE AND LIGHTLY LEAKING SS FLUID. CHEST TUBE IS LOOSE ON STAT LOCK, STAT LOCK ALSO LOOSE. DRSG REPLACED, NO CEPITUS, BUT AREA IS LIGHTLY SWOLLEN WITH SMALL BRUISE AT INSERTION SITE. DR CARRINGTON CALLED, STAT XR ORDERED. PT VERY CONFUSED, YELLING OUT. REQUEST TO "POOP BUT I CANT, PULL IT OUT!". SUP. PLACED, STOOL NOT FELT.
--- NOTE | 2022-05-18 10:58 | NUR ---
PT WAS CALM AND STILL VERY CONFUSED, POSSIBLE HALLUCINATING. UNPROVOKED PT BECAME SEVERELY AGITATED, SCREAMING AND RIPPING OFF WHAT SHE COULD WHILE RESTRAINED. DR CARRINGTON AT BEDSIDE. PRECEDEX INCREASED TO 1.4MCG, ATIVAN 1MG GIVEN.
--- NOTE | 2022-05-18 15:15 | NUR ---
DRSG TO CHEST TUBE CHANGED. PT CALM AND SLEEPING THROUGH DRSG CHANGE BUT THEN WOKE UP DURING REPOSITIONING AND BECAME SEVERELY AGITATED, ATTEMPTING TO PULL AT LINES, KICKING LEGS OVER BED. ATIVAN 1MG GIVEN W GOOD EFFECT.
[2022-05-18 16:53] LABS: Hematocrit 23.2 % (33.0-51.0); Hemoglobin 7.3 g/dL (11.5-16.0)
[2022-05-18 17:17] LABS: Vancomycin, Random 15.4 ug/mL
--- NOTE | 2022-05-18 18:20 | NUR ---
PT SLEEPING, AWAKENS PARTIALLY AND MUMBLES INCOHERENTLY. AT BEDSIDE, DR CARRINGTON UPDATED PT'S . LR RUNNING AT 100CC/HR X 1 LITER, PT IS NPO D/T SEDATION. PRECEDEX REMAINS AT 1.4MCG. PT HAD A MUCUS SMEAR TODAY. PT TO RECEIVE ONE UNIT OF PRBC'S IN AM IF HGB IS <7 IN AM.
--- NOTE | 2022-05-18 19:00 | NUR ---
ASSUMED CARE ASSUMED CARE OF PATIENT. ORIENTED TO SELF AND FAMILY ONLY. OCCASIONALLY FOLLOWS SIMPLE COMMANDS. RESTLESSNESS AND AGITATION NOTED INTERMITTENTLY. PT IS NOT REDIRECTABLE WHEN AGITATED. PRECEDEX CONTINUES AT 1.4MCG/KG/HR. DILAUDID LEAD SYSTEMS DEVELOPER 0.5MG/HR FOR COMFORT. BILATERAL SOFT WRIST RESTRAINTS IN PLACE TO PROTECT TUBES/LINES. MONITOR SHOWS NSR, RATE 80s-90s. BP STABLE. O2 2L NC- SATS STABLE. RESPIRATIONS ARE EVEN AND UNLABORED. OCCASIONAL MOIST NON-PRODUCTIVE COUGH NOTED. RIGHT LATERAL CHEST TUBE IN PLACE- 20CM SUCTION. NO CREPITUS OR AIR LEAK NOTED. NPO D/T SEDATION/ASPIRATION RISK. CARRENO PATENT AND DRAINING TO GRAVITY. LR INFUSING AT 100CC/HR X 1 L. SEE SHIFT ASSESSMENT FOR FULL ASSESSMENT.
[2022-05-19 04:18] LABS: BASOPHILS ABSOLUTE AUTO 0.04 K/mm3 (0.00-0.23); BASOPHILS PERCENT AUTO 0 % (0-2); EOSINOPHILS ABSOLUTE AUTO 0.43 K/mm3 (0.00-0.68); EOSINOPHILS PERCENT AUTO 5 % (0-6); Hematocrit 22.7 % (33.0-51.0); Hemoglobin 7.2 g/dL (11.5-16.0); IMMATURE GRAN PERCENT AUTO 1 % (0-1); LYMPHOCYTES PERCENT AUTO 13 % (21-46); MONOCYTES ABSOLUTE AUTO 0.63 K/mm3 (0.16-1.47); MONOCYTES PERCENT AUTO 7 % (4-13); Mean Corpuscular HGB 28.7 pg (26.0-34.0); Mean Corpuscular HGB Conc 31.7 g/dL (31.5-36.5); Mean Corpuscular Volume 90 fL (80-100); Mean Platelet Volume 8.6 fL (9.1-12.4); NEUTROPHILS ABSOLUTE AUTO 7.01 K/mm3 (1.96-9.15); NEUTROPHILS PERCENT AUTO 74 % (41-73); Platelet Count 199 K/mm3 (150-400); RDW Coefficient Variation 13.9 % (11.7-14.2); RDW Standard Deviation 46.1 fL (35.1-46.3); Red Blood Cell Count 2.51 M/mm3 (3.80-5.20); White Blood Cell Count 9.41 K/mm3 (4.00-11.30)
[2022-05-19 04:48] LABS: Bun/Creatinine Ratio 12.5 (12.0-20.0); Calcium, Blood 8.3 mg/dL (8.5-10.1); Creatinine, Blood 1.28 mg/dL (0.40-1.00); Potassium, Blood 3.3 mmol/L (3.5-5.5)
--- NOTE | 2022-05-19 06:03 | NUR ---
SHIFT SUMMARY NO ACUTE CHANGES DURING NOC. SEDATED WITH PRECEDEX AT 1.4 MCG/KG/HR. CONTINUES WITH PERIODS OF RESTLESSNESS AND AGITATION. ATTEMPTS TO SIT UP IN BED AND THROW LEGS OVER SIDE OF BED. PT IS NOT DIRECTABLE AT TIMES. BILATERAL SOFT WRIST RESTRAINTS REMAIN IN PLACE. VSS T/O NOC. 2L NC- SATS STABLE. RIGHT LATERAL CHEST TUBE WITH MINIMAL SEROSANGUINOUS DRAINAGE. FLUSHED WITH 20CC NS Q4H. SMALL AMOUNT OF DRAINAGE NOTED AT SITE. CARRENO PATENT AND DRAINING TO GRAVITY. INCONTINENT OF LOOSE, YELLOW GELATINOUS STOOL X 3. CHIDI POWERGLIDE AND JIMENA PICC LINE PATENT. DILAUDID WAITER AND CASHIER CONTINUES AT 0.5MG/HR CONTINUOUS WITH 0.5MG Q15 MIN NEEDED. WILL REPORT TO ONCOMING RN WHEN AVAILABLE.
--- NOTE | 2022-05-19 07:24 | NUR ---
TOOK OVER CARE OF PT AT 0700, PT RESTING ON 2LNC, 1.4MC/KG/HR OF PRECEDEX, 0.5MG/HR OF DILAUDID INFUSION.
[2022-05-19 11:08] LABS: Percent Saturation 17.6 % (15.0-50.0)
[2022-05-19 17:39] LABS: Vancomycin, Trough 15.7 ug/mL (5.0-10.0)
--- NOTE | 2022-05-19 23:28 | NUR ---
ASSUMED CARE AT 1900 PT LAYING IN BED WATCHING TV AT CHANGE OF SHIFT. PT ORIENTATION IS LABILE, SHE CAN BE ALERT/ORIENTED X4 AND ABLE TO MAKER HER NEEDS KNOW WHILE WIDE AWAKE; AT TIMES SHE WILL JUST YELL OUT AND MUST BE REMINDED TO USE CALL LIGHT; OCCATIONALLY SHE IS AWEAR THAT SHE IS HALLUCINATING AND WILL ASK TO KEEP THE RESTRAINTS ON DUE TO THIS. WHEN SOMNULANT; PT HALLUCINATIONS ARE MORE REALISTIC AND SHE CANNOT DIFFERENTIATE BETWEEN HALLUCINATION AND REALITY; DURING THIS PHASE PT ORIENTED ONLY TO SELF, RESTRAINTS CONT TO BE ON PT; PRECEDEX INFUSING AT 1MCG/KG/HR. SPO2 >95% ON 2L; CHEST TUBE TO RT LATERAL CHEST WALL IN PLACE, LINE FLUSHED WITH 20ML OF NS TO PREVENT CLOTS IN TUBING; DRESSING C/D/I. HR 80'S. SBP 150'S. CARRENO IN PLACE DRAINING TO GRAVITY. SEE SHIFT ASSESSMENT FOR FULL ASSESSMENT.
[2022-05-20 04:05] LABS: BASOPHILS ABSOLUTE AUTO 0.03 K/mm3 (0.00-0.23); BASOPHILS PERCENT AUTO 0 % (0-2); EOSINOPHILS ABSOLUTE AUTO 0.43 K/mm3 (0.00-0.68); EOSINOPHILS PERCENT AUTO 4 % (0-6); Hematocrit 22.5 % (33.0-51.0); Hemoglobin 7.4 g/dL (11.5-16.0); IMMATURE GRAN ABSOLUTE AUTO 0.12 K/mm3 (0.00-0.10); IMMATURE GRAN PERCENT AUTO 1 % (0-1); LYMPHOCYTES ABSOLUTE AUTO 1.28 K/mm3 (0.84-5.20); LYMPHOCYTES PERCENT AUTO 13 % (21-46); MONOCYTES ABSOLUTE AUTO 0.69 K/mm3 (0.16-1.47); MONOCYTES PERCENT AUTO 7 % (4-13); Mean Corpuscular HGB Conc 32.9 g/dL (31.5-36.5); Mean Corpuscular Volume 88 fL (80-100); Mean Platelet Volume 8.3 fL (9.1-12.4); NEUTROPHILS ABSOLUTE AUTO 7.29 K/mm3 (1.96-9.15); NEUTROPHILS PERCENT AUTO 74 % (41-73); Platelet Count 168 K/mm3 (150-400); RDW Coefficient Variation 13.7 % (11.7-14.2); RDW Standard Deviation 44.3 fL (35.1-46.3); Red Blood Cell Count 2.55 M/mm3 (3.80-5.20); White Blood Cell Count 9.84 K/mm3 (4.00-11.30)
[2022-05-20 04:22] LABS: Calcium, Blood 8.5 mg/dL (8.5-10.1); Creatinine, Blood 1.22 mg/dL (0.40-1.00); Magnesium, Blood 2.2 mg/dL (1.6-2.4); Phosphorus, Blood 3.1 mg/dL (2.5-4.9); Potassium, Blood 3.1 mmol/L (3.5-5.5)
--- NOTE | 2022-05-20 05:59 | NUR ---
END OF SHIFT SUMMARY NO ACUTE CHANGES OVERNIGHT. PT WAS ABLE TO SLEEP FOR A SOLID 5HRS AND THAN ON AND OFF AFTER THAT. PT WAS ORIENTED X4 ONCE BUT WHEN SOMNULANT IS DISORIENTED AND VISUAL HALLUCINATION ARE MORE PRESENT; PRECEDEX INFUSING AT 1MCG/KG/MIN. SPO2 >95% ON 2L NC; CHEST TUBE TO RT LATERAL CHEST WALL IN TACT; CHEST TUBE FLUSHES WITH 20ML NS AND ALL OF THE VOLUME RETURNED, NO ADDITIONAL OUTPUT NOTED. AFEBRILE. HR 60-100. BP STABLE. CARRENO INPLACE WITH 1100ML OUTPUT. BOTH PICC TO RUE AND POWERGLIDE TO LUE DRESSING C/D/I. DILAUDID INFUSING AT 0.5MG/HR. WILL REPORT TO AM RN WHEN AVAILABLE.
--- NOTE | 2022-05-20 07:19 | NUR ---
TOK OVER CARE OF PT AT 0700, PT RESTING ON 2LNC, 0.5 OF DILAUDID INFUSING, 1 OF PRECEDEX INFUSING.
--- NOTE | 2022-05-20 10:51 | NUR ---
REMOVED CHEST TUBE AND PLACED DRESSING.
--- NOTE | 2022-05-20 18:48 | NUR ---
SUMMARY NEURO: A/OX4, PRECEDCEX AND DILAUDID OFF AROUND 1300. NO HALLUCINATIONS PRESENT. LUNGS; DIMINISHED, ON ROOM AIR, CHEST TUBE REMOVED, NO SIGNS OF CREPITUS, TRACHEA MIDLINE, CHEST RISE SYMMETRICAL. CARDIAC; ONE EPISODE OF TACHYCARDIA, STRIP PLACED IN CHART. HR 90S-100'S TOWARDS END OF SHIFT. SCLERAL EDEMA RESOLVED FROM YESTERDAY. GI: NO BM TODAY, ONE EPISODE OF EMESIS AFTER EATING. : CARRENO IN PLACE STILL, YELLO URINE DRAINING TO GRAVITY, ORANGE CAST SEEN IN UROMETER.
--- NOTE | 2022-05-20 19:21 | NUR ---
ASSUMPTION OF CARE PT IS ALERT AND ORIENTED AT THIS TIME. SHE VOICES NO COMPLAINTS OF PAIN OR OTHERWISE. 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 BP WNL. CHEST TUBE REMOVED ON PRIOR SHIFT. NO ACTIVE DRAINING OF INCISION SITE AT THIS TIME. VANCOMYCIN INFUSING VIA IV. CARRENO CATH INTACT WELL. NO S/S OF ACUTE DISTRESS NOTED AT TIME OF ASSUMPTION OF CARE.
[2022-05-21 04:34] LABS: BASOPHILS ABSOLUTE AUTO 0.04 K/mm3 (0.00-0.23); BASOPHILS PERCENT AUTO 0 % (0-2); EOSINOPHILS ABSOLUTE AUTO 0.41 K/mm3 (0.00-0.68); EOSINOPHILS PERCENT AUTO 4 % (0-6); Hematocrit 23.7 % (33.0-51.0); Hemoglobin 7.7 g/dL (11.5-16.0); IMMATURE GRAN ABSOLUTE AUTO 0.16 K/mm3 (0.00-0.10); IMMATURE GRAN PERCENT AUTO 2 % (0-1); LYMPHOCYTES PERCENT AUTO 10 % (21-46); MONOCYTES ABSOLUTE AUTO 0.69 K/mm3 (0.16-1.47); MONOCYTES PERCENT AUTO 6 % (4-13); Mean Corpuscular HGB 28.8 pg (26.0-34.0); Mean Corpuscular HGB Conc 32.5 g/dL (31.5-36.5); Mean Corpuscular Volume 89 fL (80-100); Mean Platelet Volume 8.5 fL (9.1-12.4); NEUTROPHILS ABSOLUTE AUTO 8.45 K/mm3 (1.96-9.15); NEUTROPHILS PERCENT AUTO 78 % (41-73); Platelet Count 186 K/mm3 (150-400); RDW Coefficient Variation 13.9 % (11.7-14.2); RDW Standard Deviation 45.1 fL (35.1-46.3); Red Blood Cell Count 2.67 M/mm3 (3.80-5.20); White Blood Cell Count 10.85 K/mm3 (4.00-11.30)
[2022-05-21 04:51] LABS: Bun/Creatinine Ratio 7.7 (12.0-20.0); Calcium, Blood 8.5 mg/dL (8.5-10.1); Creatinine, Blood 1.3 mg/dL (0.40-1.00); Potassium, Blood 3.1 mmol/L (3.5-5.5)
--- NOTE | 2022-05-21 06:14 | NUR ---
SHIFT SUMMERY PT HAS HAD AN UNEVENTFUL SHIFT. VS WNL, SHE IS ALERT AND ORIENTED W/OCCASIONAL FORGETFULNESS. CARRENO CATH INTACT AND DRAINING YELLOW URINE. SR ON THE MONITOR. RA WHILE AWAKE. SHE RESTED WELL THROUGHOUT THE NIGHT AND ONLY REQUIRED PRN TYLENOL.
--- NOTE | 2022-05-21 07:03 | NUR ---
took over care of pt at 0700, pt resting on RA
[2022-05-21 17:23] LABS: Vancomycin, Trough 15.2 ug/mL (5.0-10.0)
--- NOTE | 2022-05-22 04:49 | NUR ---
SHIFT SUMMARY PATIENT HAD NO ACUTE CHANGES. AXOX 4 AND INDEPENDENT IN ROOM. PICC LINE JIMENA INTACT. POWERGLIDE LA INTACT. IV ABX INFUSED. TAKES MEDICATION WHOLE WITH WATER. INCISION SITE FROM REMOVED CHEST TUBE INTACT. TECHNICAL SPECIALIST NSR 92. VSS/AFEBRILE. REPORTED RIGHT CHEST WALL PAIN AND TYLENOL 500 MG GIVEN PER EMAR. DENIES SOB AND N/V. CALL LIGHT IN REACH. BED IN LOWEST POSITION. WILL CONTINUE TO MONITOR UNTIL DAY SHIFT NURSE ASSUMES CARE.
[2022-05-22 04:50] LABS: BASOPHILS ABSOLUTE AUTO 0.03 K/mm3 (0.00-0.23); BASOPHILS PERCENT AUTO 0 % (0-2); EOSINOPHILS ABSOLUTE AUTO 0.35 K/mm3 (0.00-0.68); EOSINOPHILS PERCENT AUTO 3 % (0-6); Hematocrit 22.3 % (33.0-51.0); Hemoglobin 7.2 g/dL (11.5-16.0); IMMATURE GRAN ABSOLUTE AUTO 0.14 K/mm3 (0.00-0.10); IMMATURE GRAN PERCENT AUTO 1 % (0-1); LYMPHOCYTES ABSOLUTE AUTO 1.36 K/mm3 (0.84-5.20); LYMPHOCYTES PERCENT AUTO 12 % (21-46); MONOCYTES PERCENT AUTO 6 % (4-13); Mean Corpuscular HGB 28.6 pg (26.0-34.0); Mean Corpuscular HGB Conc 32.3 g/dL (31.5-36.5); Mean Corpuscular Volume 89 fL (80-100); Mean Platelet Volume 8.5 fL (9.1-12.4); NEUTROPHILS ABSOLUTE AUTO 8.39 K/mm3 (1.96-9.15); NEUTROPHILS PERCENT AUTO 76 % (41-73); Platelet Count 168 K/mm3 (150-400); RDW Standard Deviation 45.3 fL (35.1-46.3); Red Blood Cell Count 2.52 M/mm3 (3.80-5.20); White Blood Cell Count 10.97 K/mm3 (4.00-11.30)
--- NOTE | 2022-05-22 04:53 | NUR ---
SHIFT SUMMARY PATIENT HAD NO ACUTE CHANGES. AXOX 4 AND BEDREST. POWERGLIDE CHIDI INTACT. IV ABX INFUSED. CHRONIC CARRENO PATENT AND DRAINING TO GRAVITY. REPORTED INSOMNIA AND PO SINEQUIN 10 MG GIVEN PER EMAR. DENIES PAIN, SOB, AND N/V. VSS/AFEBRILE. COOPERATIVE WITH CARE. CALL LIGHT IN REACH. BED IN LOWEST POSITION. WILL CONTINUE TO MONITOR UNTIL DAY SHIFT NURSE ASSUMES CARE.
[2022-05-22 05:06] LABS: Bun/Creatinine Ratio 7.8 (12.0-20.0); Calcium, Blood 8.2 mg/dL (8.5-10.1); Creatinine, Blood 1.29 mg/dL (0.40-1.00); Potassium, Blood 3.1 mmol/L (3.5-5.5)
--- NOTE | 2022-05-22 17:43 | NUR ---
SHIFT SUMMARY NO ACUTE CHANGES DURING SHIFT. PT ALERT AND ORIENTED, FOLLOWS COMMANDS. 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 PT WITH CONTINUED NAUSEA AFTER EATING, PRN MEDICATIONS ADMINISTERED. PT INDEPENDENT. WILL CONTINUE TO MONITOR.
[2022-05-23 04:59] LABS: BASOPHILS ABSOLUTE AUTO 0.03 K/mm3 (0.00-0.23); BASOPHILS PERCENT AUTO 0 % (0-2); EOSINOPHILS ABSOLUTE AUTO 0.38 K/mm3 (0.00-0.68); EOSINOPHILS PERCENT AUTO 4 % (0-6); Hematocrit 21.5 % (33.0-51.0); Hemoglobin 6.7 g/dL (11.5-16.0); IMMATURE GRAN ABSOLUTE AUTO 0.08 K/mm3 (0.00-0.10); IMMATURE GRAN PERCENT AUTO 1 % (0-1); LYMPHOCYTES ABSOLUTE AUTO 1.28 K/mm3 (0.84-5.20); LYMPHOCYTES PERCENT AUTO 13 % (21-46); MONOCYTES ABSOLUTE AUTO 0.74 K/mm3 (0.16-1.47); MONOCYTES PERCENT AUTO 8 % (4-13); Mean Corpuscular HGB 28.4 pg (26.0-34.0); Mean Corpuscular HGB Conc 31.2 g/dL (31.5-36.5); Mean Corpuscular Volume 91 fL (80-100); Mean Platelet Volume 8.6 fL (9.1-12.4); NEUTROPHILS ABSOLUTE AUTO 7.29 K/mm3 (1.96-9.15); NEUTROPHILS PERCENT AUTO 74 % (41-73); Platelet Count 148 K/mm3 (150-400); RDW Coefficient Variation 14.2 % (11.7-14.2); RDW Standard Deviation 46.7 fL (35.1-46.3); Red Blood Cell Count 2.36 M/mm3 (3.80-5.20)
[2022-05-23 05:38] LABS: Bun/Creatinine Ratio 7.9 (12.0-20.0); Calcium, Blood 8.2 mg/dL (8.5-10.1); Creatinine, Blood 1.51 mg/dL (0.40-1.00); Potassium, Blood 3.4 mmol/L (3.5-5.5)
--- NOTE | 2022-05-23 06:16 | NUR ---
SHIFT SUMMARY A/OX4, IND IN ROOM. C/O MILD BACK PAIN, MEDICATED PER EMAR. DENIES CHEST PAIN/SOB. HGB OF 6.7 ON AM LABS, NOTIFIED, ORDERS TO TRANSFUSE 1 UNIT PRBC. BLOOD CONSENT SIGNED, TYPE AND CROSS SENT TO LAB. VSS, NO ACUTE CHANGES AT THIS TIME. BED IN LOWEST POSITION WITH CALL LIGHT IN REACH. WILL CONTINUE TO MONITOR AND REPORT TO ONCOMING RN.
--- NOTE | 2022-05-23 10:03 | NUR ---
ANXIETY AND "BLACK STOOLS" REPORTED BY PATIENT RECEIVED V.O. FROM DR. MACKAY: ATARAX 10 MG PO Q6H PRN ANXIETY, OCCULT GUAIAC TO CHECK FOR SOURCE OF BLEEDING DUE TO DECREASING HGB.
--- NOTE | 2022-05-23 13:36 | NUR ---
Mid Shift Summary A/Ox4, up independently in room. Tele: SB-SR 50's-90's. 1PRBC infusing at this time. Patient reports black tarry stools yesterday. Order received for occult guaiac, no sample obtained yet. Also reports anxiety, PRN med ordered pending pharmacy delivery.
[2022-05-23 16:32] LABS: Hematocrit 24.1 % (33.0-51.0); Hemoglobin 7.5 g/dL (11.5-16.0)
--- NOTE | 2022-05-23 18:42 | NUR ---
SHIFT SUMMARY PT RECIEVED A ABG OF BLOOD TODAY AND H AND H WENT UP. SHE IS HOPEFUL TO DISCHARGE TOMORROW IF HER H AND H REMAINS STABLE. SHE WAS UP TO THE SHOWER AND STATES SHE IS FEELING MUCH BETTER TODAY. BED IN LOWEST POSITION AND CALL LIGHT IN REACH
--- NOTE | 2022-05-24 04:59 | NUR ---
SHIFT SUMMARY A/OX4, IND IN ROOM. ANXIOUS AND DIFFICULTY SLEEPING THIS SHIFT, OT ORDER FOR 0.5 ATIVAN GIVEN WITH LITTLE EFFECT. DENIES PAIN OR SOB. VSS, NO ACUTE CHANGES AT THIS TIME. BED IN LOWEST POSITION WITH CALL LIGHT IN REACH. WILL CONTINUE TO MONITOR AND REPORT TO ONCOMING RN.
[2022-05-24 06:30] LABS: Bun/Creatinine Ratio 6.4 (12.0-20.0); Calcium, Blood 8.5 mg/dL (8.5-10.1); Creatinine, Blood 1.41 mg/dL (0.40-1.00); Potassium, Blood 3.6 mmol/L (3.5-5.5)
[2022-05-24 06:33] LABS: BASOPHILS ABSOLUTE AUTO 0.04 K/mm3 (0.00-0.23); BASOPHILS PERCENT AUTO 0 % (0-2); EOSINOPHILS ABSOLUTE AUTO 0.34 K/mm3 (0.00-0.68); EOSINOPHILS PERCENT AUTO 3 % (0-6); Hematocrit 24.3 % (33.0-51.0); Hemoglobin 7.7 g/dL (11.5-16.0); IMMATURE GRAN ABSOLUTE AUTO 0.06 K/mm3 (0.00-0.10); IMMATURE GRAN PERCENT AUTO 1 % (0-1); LYMPHOCYTES ABSOLUTE AUTO 1.49 K/mm3 (0.84-5.20); LYMPHOCYTES PERCENT AUTO 14 % (21-46); MONOCYTES ABSOLUTE AUTO 0.69 K/mm3 (0.16-1.47); MONOCYTES PERCENT AUTO 7 % (4-13); Mean Corpuscular HGB 28.7 pg (26.0-34.0); Mean Corpuscular HGB Conc 31.7 g/dL (31.5-36.5); Mean Corpuscular Volume 91 fL (80-100); Mean Platelet Volume 8.7 fL (9.1-12.4); NEUTROPHILS ABSOLUTE AUTO 7.88 K/mm3 (1.96-9.15); NEUTROPHILS PERCENT AUTO 75 % (41-73); Platelet Count 167 K/mm3 (150-400); RDW Coefficient Variation 14.3 % (11.7-14.2); RDW Standard Deviation 46.9 fL (35.1-46.3); Red Blood Cell Count 2.68 M/mm3 (3.80-5.20)
[2022-05-24 09:08] LABS: Stool Occult Blood Guaiac 1 Neg (Neg)
[2022-05-24] MEDS ORDERED: HYDHCL25 PO (12:11)
[2022-05-24] MEDS ORDERED: DOCU100 PO (12:11)
[2022-05-24] MEDS ORDERED: MELATONIN 5 MG1 EACH PO (12:12)
[2022-05-24] MEDS ORDERED: MIRALAX17 GM PO (12:13)
[2022-05-24] MEDS ORDERED: ONDA4ODT MM (12:13)
[2022-05-24] MEDS ORDERED: VISBIOME 112.51 EACH PO (12:14)
[2022-05-24] MEDS ORDERED: CEFP200 PO (12:15)
[2022-05-24] MEDS ORDERED: OMEP20ER PO (12:16)
--- NOTE | 2022-05-24 13:41 | NUR ---
PATIENT DISCHARGED TO HOME WITH FRIEND. PICC LINE REMOVED BY Jameel POND RN. VERBALIZED UNDERSTANDING OF D/C INSTRUCTIONS. OFF UNIT, AMBULATORY, AT 1240. NO BELONGINGS LEFT BEHIND IN ROOM.
== END 2022-05-24 12:40 | disposition home health service (06) | DRG 871 ==
LOC: ER 09:21 → PCU 14:04 → MEDS 14:04 → PCU 05-12 13:34 → ICUW 05-13 14:50 → ICUE 05-15 11:00 → MEDS 05-21 18:10
PROVIDERS: Family Medicine; Internal Medicine; Internal Medicine Critical Care Medicine; Physician Assistant; ADMIT Internal Medicine
PROC: 02HV33Z Insertion of Infusion Device into Superior Vena Cava, Percutaneous Approach (ICD-10-PCS; 2022-05-10)
PROC: 3E03329 Introduction of Other Anti-infective into Peripheral Vein, Percutaneous Approach (ICD-10-PCS; 2022-05-10)
PROC: 0W9930Z Drainage of Right Pleural Cavity with Drainage Device, Percutaneous Approach (ICD-10-PCS; 2022-05-12)
PROC: 3E033XZ Introduction of Vasopressor into Peripheral Vein, Percutaneous Approach (ICD-10-PCS; 2022-05-13)
PROC: 30233P1 Transfusion of Nonautologous Frozen Red Cells into Peripheral Vein, Percutaneous Approach (ICD-10-PCS; principal; 2022-05-23)
DX: A41.9 Sepsis, unspecified organism (principal); G92.8 Other toxic encephalopathy; J85.1 Abscess of lung with pneumonia; J96.01 Acute respiratory failure with hypoxia; N17.9 Acute kidney failure, unspecified; F10.139 Alcohol abuse with withdrawal, unspecified; Z68.33 Body mass index [BMI] 33.0-33.9, adult; E88.81 Metabolic syndrome and other insulin resistance; I95.9 Hypotension, unspecified; R65.20 Severe sepsis without septic shock; D64.9 Anemia, unspecified; Z78.1 Physical restraint status; E66.9 Obesity, unspecified; R73.9 Hyperglycemia, unspecified; I10 Essential (primary) hypertension; Z71.6 Tobacco abuse counseling; F31.9 Bipolar disorder, unspecified; K76.0 Fatty (change of) liver, not elsewhere classified; F17.210 Nicotine dependence, cigarettes, uncomplicated; Z79.899 Other long term (current) drug therapy
CPT/HCPCS: 32557; 36415; 36430; 36569; 71045; 71046; 71250; 74177; 76604; 76705; 80048; 80053; 80069; 80202; 81001; 81003; 82272; 82728; 82945; 83540; 83550; 83615; 83690; 83735; 83986; 84100; 84145; 84157; 85014; 85018; 85025; 85027; 85610; 86850; 86900; 86901; 86923; 87040; 87070; 87075; 87205; 88108; 89051; 94640; 94664; 94760; 94762; 96365; 96366; 96375; 96376; 97116; 97161; 97165; 97530; 98960; 99285-25; 99407; A9270; C1751; J0456; J1170; J1650; J1885; J2060; J2405; J2543; J2997; J3010; J3370; J3480; J7030; J7040; J7050; J7060; J7120; P9016; Q9967